=== PATIENT | female | born 1955 | race Caucasian/White ===

== ENCOUNTER 2022-07-29 19:30 | Inpatient (IN) | payer OTHER ==
[~2022-07-29] VITALS: Ht 177.8 cm; Wt 95.2 kg
[2022-07-29 21:18] LABS: BASOPHILS ABSOLUTE AUTO 0.07 K/mm3 (0.00-0.23); BASOPHILS PERCENT AUTO 1 % (0-2); EOSINOPHILS PERCENT AUTO 3 % (0-6); Hematocrit 39.9 % (33.0-51.0); Hemoglobin 13.9 g/dL (11.5-16.0); IMMATURE GRAN ABSOLUTE AUTO 0.05 K/mm3 (0.00-0.10); IMMATURE GRAN PERCENT AUTO 1 % (0-1); LYMPHOCYTES ABSOLUTE AUTO 2.54 K/mm3 (0.84-5.20); LYMPHOCYTES PERCENT AUTO 29 % (21-46); MONOCYTES ABSOLUTE AUTO 0.75 K/mm3 (0.16-1.47); MONOCYTES PERCENT AUTO 9 % (4-13); Mean Corpuscular HGB 30.6 pg (26.0-34.0); Mean Corpuscular HGB Conc 34.8 g/dL (31.5-36.5); Mean Corpuscular Volume 88 fL (80-100); NEUTROPHILS PERCENT AUTO 58 % (41-73); Platelet Count 275 K/mm3 (150-400); RDW Coefficient Variation 12.5 % (11.7-14.2); RDW Standard Deviation 40.2 fL (35.1-46.3); Red Blood Cell Count 4.54 M/mm3 (3.80-5.20); White Blood Cell Count 8.81 K/mm3 (4.00-11.30)
[2022-07-29 21:40] LABS: Source, Urine Clean Catch
[2022-07-29 21:55] LABS: Albumin/Globulin Ratio 0.7 (0.8-1.8); Bilirubin, Total 0.1 mg/dL (0.1-1.0); Bun/Creatinine Ratio 32.7 (12.0-20.0); Creatinine, Blood 0.61 mg/dL (0.40-1.00); Globulin, Blood 4.1 g/dL (2.2-4.0); Potassium, Blood 4.2 mmol/L (3.5-5.5); Total Protein, Blood 7.1 g/dL (6.4-8.2)
[2022-07-29 22:00] LABS: Bilirubin, Urine Neg (Neg); Blood, Urine Neg (Neg); Glucose Qualitative, Urine 4+ (Neg); Ketones, Urine Neg (Neg); Leukocyte Esterase, Urine Neg (Neg); Nitrite, Urine Neg (Neg); Protein, Urine Neg (Neg); Urobilinogen, Urine NORM (Normal)
[2022-07-29 22:04] LABS: Appearance, Urine Clear (Clear); Color, Urine Yellow (P-Yellow)
[2022-07-29] MEDS ORDERED: AMITRIPTYLINE150 M1 PO (22:26)
[2022-07-29] MEDS ORDERED: CYCL10 PO (22:26)
[2022-07-29] MEDS ORDERED: GLIMEPIRIDE2 M2 PO (22:27)
[2022-07-29] MEDS ORDERED: METOPROLOL TART25 MG PO (22:28)
[2022-07-29] MEDS ORDERED: ADMELOG SO100 UNIT/2 SC (22:30)
[2022-07-29] MEDS ORDERED: ASPI81CH PO (22:33)
[2022-07-29] MEDS ORDERED: LANTUS SOL100 UNIT/1 SC (22:33)
[2022-07-29] MEDS ORDERED: THERA-D2000 UNIT PO (22:34)
[2022-07-29] MEDS ORDERED: CRANBERRY CONC1 EAC1 PO (22:35)
[2022-07-29] MEDS ORDERED: ALBU90OI INH (22:36)
--- NOTE | 2022-07-30 05:04 | NUR ---
SHIFT SUMMARY 67 YR F ADMITTED ON 07/29/22 FOR TIA. FULL CODE. PT WAS ADMITTED FROM ED THIS SHIFT. SHE IS A&O X 4 AND IS INDEPENDANT IN THE ROOM. PT STATED SLIGHT LEFT ARM DEFICIT BUT BUT NO OTHER STROKE SX. SHE HAS NO C/O PAIN OR DISCOMFORT. ONCE SHE WAS SETTLED AND ASSESSMENTS DONE SHE WENT TO SLEEP AND SLEPT FOR THE REST OF THE SHIFT.
[2022-07-30 05:15] LABS: CHOL/HDL RATIO 5.5; Cholesterol 204 mg/dL (50-200); HDL Cholesterol 37 mg/dL (>39); LDL/HDL RATIO 3.4; Low Density Lipoprotein Chol 126 mg/dL (0-110); Triglycerides 204 mg/dL (30-160); Very Low Density Lipoprot Chol 40 mg/dL (6-32)
--- NOTE | 2022-07-30 18:28 | NUR ---
PT IS A/OX4, PLEASANT AND COOPERATIVE. THE PT IS UP IND IN HER ROOM. THE PT REPORTS FEELING SOME LEFT ARM WEAKNESS ONLY. PT APPEARS TO BE BREATHING EASILY ON RA. PT WAS MEDICATED FOR BOX WITH TYLENOL X2 TODAY. NO OTHER NEURO CHANGES NOTICED THIS SHIFT. CALL LIGHT IN REACH, WILL CONTINUE TO MONITOR AND ASSESS FOR CHANGES
--- NOTE | 2022-07-31 05:20 | NUR ---
SHIFT SUMMARY; PT WITH NO ACUTE MEDICAL CHANGES THROUGHOUT THE NIGHT. PT EXPRESSED CONCERN ABOUT BLOOD SUGAR LEVELS, STATED SHE DID NOT WANT SHORT ACTING INSULIN. SHE IS WORRIED HER BLOOD SUGAR LEVELS WILL DROP TO QUICKLY AND SHE WILL BECOME HYPOGLYCEMIC. PT WAS GIVEN INSULIN GLARGINE ONLY LAST NIGHT. PT REQUESTED FLEXERIL FOR MUSCLE SPASMS AND TIGHTNESS IN HER LOWER BACK AND THIGHS. PTS REPORTS FLEXERIL WORKED WELL FOR MUSCLE SPASMS. PT INDEPENDENT IN THE ROOM THROUGHOUT THE NIGHT. NICOTINE PATCH WAS REMOVED AT 0300 THIS AM. PT USED CALL LIGHT OLIVIA NATARAJAN THE NIGHT. TELE IN PLACE, PT RAN NSR 70'S. PT CURRENTLY RESTING IN BED WITH THE BED IN THE LOWEST POSITION AND THE CALL LIGHT AT BEDSIDE.
[2022-07-31 08:46] LABS: Albumin, Blood 2.9 g/dL (3.4-5.0); Anion Gap 3 mmol/L (6-16); Blood Urea Nitrogen 18 mg/dL (8-24); Bun/Creatinine Ratio 28.2 (12.0-20.0); CO2, Blood 30 mmol/L (21-32); Chloride, Blood 105 mmol/L (98-108); Creatinine, Blood 0.64 mg/dL (0.40-1.00); Glomerular Filtration Rate 98 (60-); Glucose, Blood 205 mg/dL (70-99); Phosphorus, Blood 2.8 mg/dL (2.5-4.9); Potassium, Blood 3.7 mmol/L (3.5-5.5); Sodium, Blood 138 mmol/L (136-145)
--- NOTE | 2022-07-31 15:19 | NUR ---
PT CAME TO DOOR. FEELS SWEATY, DRIPPING/ CHECK CGB. 66. GAVE APPLE JUICE, YOGURT, SANDWICH. SHE STATES FEELS MUCH BETTER. FEELING NORMAL NOW. ADVISED DR PEREZ. PT STATES NOT EATING MUCH NORMAL.
[2022-07-31] MEDS ORDERED: ATOR80 PO (15:26)
[2022-07-31] MEDS ORDERED: CLOP75 PO (15:26)
[2022-07-31] MEDS ORDERED: LISI20 PO (15:27)
[2022-07-31] MEDS ORDERED: NICODERM CQ1 EA11 TOP (15:27)
--- NOTE | 2022-07-31 16:33 | NUR ---
1600, PT DISCHARGE REVIEWED AND SHE VERBALIZED UNDERSTANDING MARY AND INST. PT PULLED OWN IV (INTACT VISUALIZED). TELE REMVOED. PT WHEELED TO DOOR AT 1610
--- NOTE | 2022-07-31 16:33 | NUR ---
RECHECK OF CBG 131 AFTER FOOD.
== END 2022-07-31 16:34 | disposition home or self-care (01) | DRG 65 ==
LOC: ER 19:30 → MEDS 23:09
PROVIDERS: Internal Medicine; Physician Assistant; ADMIT Internal Medicine
DX: I63.9 Cerebral infarction, unspecified (principal); G81.94 Hemiplegia, unspecified affecting left nondominant side; F17.200 Nicotine dependence, unspecified, uncomplicated; I25.10 Atherosclerotic heart disease of native coronary artery without angina pectoris; E78.5 Hyperlipidemia, unspecified; E11.42 Type 2 diabetes mellitus with diabetic polyneuropathy; I10 Essential (primary) hypertension; E11.65 Type 2 diabetes mellitus with hyperglycemia; Z79.82 Long term (current) use of aspirin; Z95.1 Presence of aortocoronary bypass graft; Z79.899 Other long term (current) drug therapy; Z79.4 Long term (current) use of insulin; Z79.84 Long term (current) use of oral hypoglycemic drugs
CPT/HCPCS: 36415; 70450; 80053; 80061; 80069; 81003; 82947; 83036; 85025; 93005; 93010; 93306; 93880; 97110; 97161; 97165; 97535; A9270; J1650; J1815; J7030; J7120

== ENCOUNTER 2022-08-05 15:57 | Emergency (ER) | payer OTHER ==
[~2022-08-05] VITALS: Ht 175.3 cm; Wt 90.7 kg
[~2022-08-05 15:57] MED LIST: ADMELOG SO100 UNIT/2 SC; ALBU90OI INH; AMITRIPTYLINE150 M1 PO; ASPI81CH PO; ATOR80 PO; CLOP75 PO; CRANBERRY CONC1 EAC1 PO; CYCL10 PO; GLIMEPIRIDE2 M2 PO; LANTUS SOL100 UNIT/1 SC; LISI20 PO; METOPROLOL TART25 MG PO; NICODERM CQ1 EA11 TOP; THERA-D2000 UNIT PO
[2022-08-05 17:43] LABS: BASOPHILS ABSOLUTE AUTO 0.07 K/mm3 (0.00-0.23); BASOPHILS PERCENT AUTO 1 % (0-2); EOSINOPHILS ABSOLUTE AUTO 0.29 K/mm3 (0.00-0.68); EOSINOPHILS PERCENT AUTO 3 % (0-6); Hematocrit 40.5 % (33.0-51.0); Hemoglobin 13.9 g/dL (11.5-16.0); IMMATURE GRAN ABSOLUTE AUTO 0.04 K/mm3 (0.00-0.10); IMMATURE GRAN PERCENT AUTO 0 % (0-1); LYMPHOCYTES ABSOLUTE AUTO 2.73 K/mm3 (0.84-5.20); LYMPHOCYTES PERCENT AUTO 28 % (21-46); MONOCYTES ABSOLUTE AUTO 0.75 K/mm3 (0.16-1.47); MONOCYTES PERCENT AUTO 8 % (4-13); Mean Corpuscular HGB 30.8 pg (26.0-34.0); Mean Corpuscular HGB Conc 34.3 g/dL (31.5-36.5); Mean Corpuscular Volume 90 fL (80-100); NEUTROPHILS ABSOLUTE AUTO 6.06 K/mm3 (1.96-9.15); NEUTROPHILS PERCENT AUTO 61 % (41-73); Platelet Count 289 K/mm3 (150-400); RDW Coefficient Variation 12.5 % (11.7-14.2); RDW Standard Deviation 41.3 fL (35.1-46.3); Red Blood Cell Count 4.52 M/mm3 (3.80-5.20); White Blood Cell Count 9.94 K/mm3 (4.00-11.30)
[2022-08-05 18:04] LABS: Alanine Aminotransfer (ALT/SGP 20 U/L (12-78); Albumin, Blood 3.2 g/dL (3.4-5.0); Albumin/Globulin Ratio 0.8 (0.8-1.8); Alk Phos 122 U/L (50-136); Anion Gap 5 mmol/L (6-16); Aspartate Aminotrans (AST/SGOT 18 U/L (12-37); Bilirubin, Total 0.3 mg/dL (0.1-1.0); Blood Urea Nitrogen 27 mg/dL (8-24); Bun/Creatinine Ratio 30.1 (12.0-20.0); CO2, Blood 27 mmol/L (21-32); Calcium, Blood 9.3 mg/dL (8.5-10.1); Chloride, Blood 105 mmol/L (98-108); Ethanol (Alcohol), Blood, Med <3 mg/dL; Globulin, Blood 4.2 g/dL (2.2-4.0); Glomerular Filtration Rate 71 (60-); Glucose, Blood 291 mg/dL (70-99); Potassium, Blood 4.1 mmol/L (3.5-5.5); Sodium, Blood 137 mmol/L (136-145); Total Protein, Blood 7.4 g/dL (6.4-8.2)
[2022-08-05 18:15] LABS: International Normalized Ratio 1.02; Prothrombin Time Results 10.7 Sec (9.7-11.5)
[2022-08-05 18:54] LABS: Source, Urine Clean Catch
[2022-08-05 19:00] LABS: Appearance, Urine Hazy (Clear); Bilirubin, Urine Neg (Neg); Blood, Urine 1+ (Neg); Color, Urine Yellow (P-Yellow); Glucose Qualitative, Urine 4+ (Neg); Ketones, Urine Neg (Neg); Leukocyte Esterase, Urine 1+ (Neg); Nitrite, Urine Neg (Neg); Protein, Urine Neg (Neg); Urobilinogen, Urine NORM (Normal)
[2022-08-05 19:22] LABS: Bacteria Many /hpf; Hyaline Casts 0-2 /lpf (0-2); Squamous Epithelial Cells Mod /hpf (Few); Yeast/Fungi Urine Rare /hpf
[2022-08-05 19:27] LABS: U Amphetamine Screen Not Detected; U Barbituate Screen Not Detected; U Benzodiazapine Screen Not Detected; U Buprenorphine Screen Not Detected; U Cannabinoids Screen Not Detected; U Cocaine Screen Not Detected; U Methadone Screen Not Detected; U Methamphetamine Screen Not Detected; U Opiates Screen Not Detected; U Oxycodone Screen Not Detected; U Phencyclidine Screen Not Detected; U Propoxyphene Screen Not Detected
== END 2022-08-05 19:45 | disposition home or self-care (01) ==
LOC: ER 15:57
PROVIDERS: Emergency Medicine
DX: I63.9 Cerebral infarction, unspecified (principal); Z79.4 Long term (current) use of insulin; Z79.899 Other long term (current) drug therapy; Z79.82 Long term (current) use of aspirin; I10 Essential (primary) hypertension; I25.10 Atherosclerotic heart disease of native coronary artery without angina pectoris; E11.40 Type 2 diabetes mellitus with diabetic neuropathy, unspecified; F17.210 Nicotine dependence, cigarettes, uncomplicated
CPT/HCPCS: 70450; 80053; 81001; 82947; 84484; 85025; 85610; 87086; 93005; 93010; G0480

== ENCOUNTER → 2023-05-25 | Outpatient (CLI) | payer MEDICARE, OTHER ==
[~2023-05-25] MED LIST changes: +AMOCLA875 PO
[2023-05-25 16:27] LABS: BASOPHILS PERCENT AUTO 1 % (0-2); EOSINOPHILS ABSOLUTE AUTO 0.22 K/mm3 (0.00-0.68); EOSINOPHILS PERCENT AUTO 2 % (0-6); Hematocrit 44.2 % (33.0-51.0); Hemoglobin 15.3 g/dL (11.5-16.0); IMMATURE GRAN ABSOLUTE AUTO 0.05 K/mm3 (0.00-0.10); IMMATURE GRAN PERCENT AUTO 1 % (0-1); LYMPHOCYTES ABSOLUTE AUTO 3.02 K/mm3 (0.84-5.20); LYMPHOCYTES PERCENT AUTO 32 % (21-46); MONOCYTES ABSOLUTE AUTO 0.75 K/mm3 (0.16-1.47); MONOCYTES PERCENT AUTO 8 % (4-13); Mean Corpuscular HGB 30.6 pg (26.0-34.0); Mean Corpuscular HGB Conc 34.6 g/dL (31.5-36.5); Mean Corpuscular Volume 88 fL (80-100); Mean Platelet Volume 11.8 fL (9.1-12.4); NEUTROPHILS ABSOLUTE AUTO 5.37 K/mm3 (1.96-9.15); NEUTROPHILS PERCENT AUTO 56 % (41-73); Platelet Count 260 K/mm3 (150-400); RDW Coefficient Variation 12.4 % (11.7-14.2); RDW Standard Deviation 40.1 fL (35.1-46.3); White Blood Cell Count 9.51 K/mm3 (4.00-11.30)
[2023-05-25 18:25] LABS: Albumin, Blood 3.6 g/dL (3.4-5.0); Albumin/Globulin Ratio 0.9 (0.8-1.8); Bilirubin, Total 0.4 mg/dL (0.1-1.0); Creatinine, Blood 0.56 mg/dL (0.40-1.00); Globulin, Blood 4.1 g/dL (2.2-4.0); Potassium, Blood 3.7 mmol/L (3.5-5.5); Total Protein, Blood 7.7 g/dL (6.4-8.2)
== END ==
LOC: LAB SHORT 14:45 → LAB 14:45
PROVIDERS: Nurse Practitioner Family
DX: I10 Essential (primary) hypertension (principal)
CPT/HCPCS: 80053; 85025

== ENCOUNTER → 2023-06-09 | Outpatient (CLI) | payer MEDICARE, OTHER ==
[2023-06-10 00:08] LABS: Candida species (DNA Probe) Positive (NEGATIVE); G. vaginalis (DNA Probe) Negative (NEGATIVE); T. vaginalis (DNA Probe) Negative (NEGATIVE)
[2023-06-12 01:06] LABS: CHLAMYDIA TRACHOMATIS, NAA Negative (Negative)
== END | disposition home or self-care (01) ==
LOC: LAB 15:30 → LAB SHORT 15:30
PROVIDERS: Nurse Practitioner Family
DX: Z72.51 High risk heterosexual behavior (principal)
CPT/HCPCS: 87480; 87491; 87510; 87591; 87660

== ENCOUNTER → 2023-06-09 | Outpatient (CLI) | payer MEDICARE, OTHER ==
[2023-06-10 08:13] LABS: HIV AB/P24 AG SCREEN Non Reactive (Non Reactive)
[2023-06-12 06:08] LABS: HBSAG SCREEN Negative (Negative); HCV AB Non Reactive (Non Reactive); HEP A AB, IGM Negative (Negative); HEP B CORE AB, IGM Negative (Negative)
== END | disposition home or self-care (01) ==
LOC: LAB SHORT 16:05 → LAB 16:05
PROVIDERS: Nurse Practitioner Family
DX: R10.9 Unspecified abdominal pain (principal); Z72.51 High risk heterosexual behavior
CPT/HCPCS: 80074; 86592; 87389

== ENCOUNTER 2023-06-17 10:30 | Emergency (ER) | payer MEDICARE, OTHER ==
[~2023-06-17] VITALS: Ht 177.8 cm; Wt 90.7 kg
[2023-06-17 11:12] LABS: BASOPHILS PERCENT AUTO 1 % (0-2); EOSINOPHILS ABSOLUTE AUTO 0.06 K/mm3 (0.00-0.68); EOSINOPHILS PERCENT AUTO 1 % (0-6); Hematocrit 41.7 % (33.0-51.0); Hemoglobin 14.5 g/dL (11.5-16.0); IMMATURE GRAN ABSOLUTE AUTO 0.05 K/mm3 (0.00-0.10); IMMATURE GRAN PERCENT AUTO 1 % (0-1); LYMPHOCYTES ABSOLUTE AUTO 1.99 K/mm3 (0.84-5.20); LYMPHOCYTES PERCENT AUTO 23 % (21-46); MONOCYTES ABSOLUTE AUTO 0.87 K/mm3 (0.16-1.47); MONOCYTES PERCENT AUTO 10 % (4-13); Mean Corpuscular HGB 30.3 pg (26.0-34.0); Mean Corpuscular HGB Conc 34.8 g/dL (31.5-36.5); Mean Corpuscular Volume 87 fL (80-100); Mean Platelet Volume 10.5 fL (9.1-12.4); NEUTROPHILS ABSOLUTE AUTO 5.75 K/mm3 (1.96-9.15); NEUTROPHILS PERCENT AUTO 65 % (41-73); Platelet Count 291 K/mm3 (150-400); RDW Standard Deviation 38.6 fL (35.1-46.3); Red Blood Cell Count 4.79 M/mm3 (3.80-5.20); White Blood Cell Count 8.82 K/mm3 (4.00-11.30)
[2023-06-17 11:23] LABS: Bun/Creatinine Ratio 15.6 (12.0-20.0); Calcium, Blood 8.8 mg/dL (8.5-10.1); Creatinine, Blood 0.7 mg/dL (0.40-1.00); Magnesium, Blood 1.6 mg/dL (1.6-2.4); Potassium, Blood 4.2 mmol/L (3.5-5.5)
[2023-06-17 12:06] LABS: Influenza A, PCR NEGATIVE (NEGATIVE); Influenza B, PCR NEGATIVE (NEGATIVE); Resp Syncytial Virus, PCR NEGATIVE (NEGATIVE); SARS-Cov-2 (COVID-19) PCR, MMC NEGATIVE (NEGATIVE)
[2023-06-17 13:41] VITALS: BP 159/95
== END 2023-06-17 13:41 | disposition home or self-care (01) ==
LOC: ER 10:30
PROVIDERS: Student in an Organized Health Care Education/Training Program
DX: E86.0 Dehydration (principal); E87.1 Hypo-osmolality and hyponatremia; B34.9 Viral infection, unspecified; R20.0 Anesthesia of skin; I10 Essential (primary) hypertension; I25.10 Atherosclerotic heart disease of native coronary artery without angina pectoris; E11.40 Type 2 diabetes mellitus with diabetic neuropathy, unspecified; E78.5 Hyperlipidemia, unspecified; F17.210 Nicotine dependence, cigarettes, uncomplicated; Z20.822 Contact with and (suspected) exposure to COVID-19; Z79.82 Long term (current) use of aspirin; Z79.4 Long term (current) use of insulin; Z86.73 Personal history of transient ischemic attack (TIA), and cerebral infarction without residual deficits; Z79.899 Other long term (current) drug therapy
CPT/HCPCS: 0241U; 70450; 80048; 83735; 85025; 93005; 93010; 96374; 99285-25; A9270; J1885

== ENCOUNTER 2023-11-01 14:35 | Emergency (ER) | payer MEDICARE, OTHER ==
[~2023-11-01] VITALS: Ht 180.3 cm; Wt 71.7 kg
[2023-11-01 15:10] VITALS: BP 159/83
[2023-11-01 15:40] LABS: Bicarbonate Venous 22.4 mmol/L (24.0-30.0); PCO2 Venous 43.5 mmHg (38-42); pH Blood Venous 7.34 (7.34-7.37)
[2023-11-01 16:02] LABS: BASOPHILS ABSOLUTE AUTO 0.06 K/mm3 (0.00-0.23); BASOPHILS PERCENT AUTO 1 % (0-2); EOSINOPHILS ABSOLUTE AUTO 0.12 K/mm3 (0.00-0.68); EOSINOPHILS PERCENT AUTO 2 % (0-6); Hematocrit 40.4 % (33.0-51.0); IMMATURE GRAN PERCENT AUTO 1 % (0-1); LYMPHOCYTES ABSOLUTE AUTO 1.95 K/mm3 (0.84-5.20); LYMPHOCYTES PERCENT AUTO 25 % (21-46); MONOCYTES ABSOLUTE AUTO 0.83 K/mm3 (0.16-1.47); MONOCYTES PERCENT AUTO 10 % (4-13); Mean Corpuscular HGB 30.8 pg (26.0-34.0); Mean Corpuscular HGB Conc 34.7 g/dL (31.5-36.5); Mean Corpuscular Volume 89 fL (80-100); Mean Platelet Volume 11.6 fL (9.1-12.4); NEUTROPHILS PERCENT AUTO 62 % (41-73); Platelet Count 247 K/mm3 (150-400); RDW Coefficient Variation 12.4 % (11.7-14.2); RDW Standard Deviation 40.6 fL (35.1-46.3); Red Blood Cell Count 4.54 M/mm3 (3.80-5.20); White Blood Cell Count 7.96 K/mm3 (4.00-11.30)
[2023-11-01 16:05] LABS: Albumin, Blood 3.1 g/dL (3.4-5.0); Albumin/Globulin Ratio 0.8 (0.8-1.8); Beta-hydroxybutyrate 25.2 mg/dL (0.2-2.8); Bilirubin, Total 0.4 mg/dL (0.1-1.0); Bun/Creatinine Ratio 43.1 (12.0-20.0); Calcium, Blood 9.4 mg/dL (8.5-10.1); Creatinine, Blood 0.51 mg/dL (0.40-1.00); Globulin, Blood 4.1 g/dL (2.2-4.0); Potassium, Blood 4.1 mmol/L (3.5-5.5); Total Protein, Blood 7.2 g/dL (6.4-8.2)
[2023-11-01 16:19] LABS: Source, Urine Clean Catch
[2023-11-01 16:32] LABS: Appearance, Urine Clear (Clear); Bilirubin, Urine Neg (Neg); Blood, Urine Neg (Neg); Color, Urine Yellow (P-Yellow); Glucose Qualitative, Urine 4+ (Neg); Ketones, Urine 3+ (Neg); Leukocyte Esterase, Urine Neg (Neg); Nitrite, Urine Neg (Neg); Protein, Urine Neg (Neg); Specific Gravity, Urine 1.015 (1.003-1.022); Urobilinogen, Urine NORM (Normal)
== END 2023-11-01 18:22 | disposition left against medical advice (07) ==
LOC: ER 14:35
PROVIDERS: Emergency Medicine
DX: E11.65 Type 2 diabetes mellitus with hyperglycemia (principal); I10 Essential (primary) hypertension; I25.10 Atherosclerotic heart disease of native coronary artery without angina pectoris; F17.210 Nicotine dependence, cigarettes, uncomplicated; Z79.4 Long term (current) use of insulin; Z79.82 Long term (current) use of aspirin; Z79.899 Other long term (current) drug therapy; Z86.73 Personal history of transient ischemic attack (TIA), and cerebral infarction without residual deficits; Z95.1 Presence of aortocoronary bypass graft; Z95.5 Presence of coronary angioplasty implant and graft; Z53.21 Procedure and treatment not carried out due to patient leaving prior to being seen by health care provider
CPT/HCPCS: 71046; 80053; 81003; 82010; 82803; 85025; 93005; 93010; 94644; 94664; 99285-25; A9270; J1815

== ENCOUNTER → 2024-04-25 | Outpatient (CLI) | payer MEDICARE, OTHER ==
[2024-04-25 14:14] LABS: BASOPHILS ABSOLUTE AUTO 0.09 K/mm3 (0.00-0.23); BASOPHILS PERCENT AUTO 1 % (0-2); EOSINOPHILS ABSOLUTE AUTO 0.17 K/mm3 (0.00-0.68); EOSINOPHILS PERCENT AUTO 2 % (0-6); Hematocrit 45.6 % (33.0-51.0); Hemoglobin 16.1 g/dL (11.5-16.0); IMMATURE GRAN ABSOLUTE AUTO 0.06 K/mm3 (0.00-0.10); IMMATURE GRAN PERCENT AUTO 1 % (0-1); LYMPHOCYTES ABSOLUTE AUTO 2.12 K/mm3 (0.84-5.20); LYMPHOCYTES PERCENT AUTO 22 % (21-46); MONOCYTES ABSOLUTE AUTO 0.63 K/mm3 (0.16-1.47); MONOCYTES PERCENT AUTO 6 % (4-13); Mean Corpuscular HGB 30.8 pg (26.0-34.0); Mean Corpuscular HGB Conc 35.3 g/dL (31.5-36.5); Mean Corpuscular Volume 87 fL (80-100); Mean Platelet Volume 10.8 fL (9.1-12.4); NEUTROPHILS ABSOLUTE AUTO 6.73 K/mm3 (1.96-9.15); NEUTROPHILS PERCENT AUTO 69 % (41-73); Platelet Count 350 K/mm3 (150-400); RDW Standard Deviation 38.7 fL (35.1-46.3); Red Blood Cell Count 5.23 M/mm3 (3.80-5.20)
[2024-04-25 14:27] LABS: Albumin, Blood 3.4 g/dL (3.4-5.0); Albumin/Globulin Ratio 0.8 (0.8-1.8); Bilirubin, Total 0.4 mg/dL (0.1-1.0); Bun/Creatinine Ratio 30.7 (12.0-20.0); Calcium, Blood 8.9 mg/dL (8.5-10.1); Creatinine, Blood 0.59 mg/dL (0.40-1.00); Globulin, Blood 4.5 g/dL (2.2-4.0); Potassium, Blood 3.9 mmol/L (3.5-5.5); Thyroid Stimulating Hormone 1.06 uIU/mL (0.360-4.800); Total Protein, Blood 7.9 g/dL (6.4-8.2)
[2024-04-25 15:07] LABS: Bacterial Vaginosis PCR Negative (NEGATIVE); Candida Group, PCR DETECTED (NOT DETECT); Candida glabrata-krusei, PCR DETECTED (NOT DETECT)
[2024-04-27 07:43] LABS: HIV 1,2 COMBO ANTIGEN/ANTIBODY Negative (Negative)
[2024-04-27 09:51] LABS: HEPATITIS A ANTIBODY, IGM Negative (Negative); HEPATITIS B CORE ANTIBODY, IGM Negative (Negative); HEPATITIS B SURFACE ANTIGEN Negative (Negative); HEPATITIS C AB CIA INTERP Negative (Negative); HEPATITIS C ANTIBODY CIA INDEX 0.05 IV
[2024-04-27 20:45] LABS: APTIMA MEDIA TYPE Urine; C. TRACHOMATIS BY TMA Negative (Negative); N. GONORRHOEAE BY TMA Negative (Negative); SPECIMEN SOURCE Urine; T. VAGINALIS BY TMA Negative (Negative)
== END ==
LOC: LAB 12:20 → LAB SHORT 12:20
PROVIDERS: Nurse Practitioner Family
DX: I10 Essential (primary) hypertension (principal); Z72.51 High risk heterosexual behavior; R53.81 Other malaise
CPT/HCPCS: 80053; 80074; 84443; 85025; 86592; 87086; 87389; 87481; 87491; 87591; 87661; 87801

== ENCOUNTER 2024-10-11 19:11 | Inpatient (IN) | payer MEDICARE, OTHER ==
[~2024-10-11] VITALS: Ht 177.8 cm; Wt 61.4 kg
[2024-10-11 20:35] LABS: CORONAVIRUS COVID-19 AG Negative (NEGATIVE); INFLUENZA A AG Negative (NEGATIVE); INFLUENZA B AG Negative (NEGATIVE)
[2024-10-11] MEDS ORDERED: Acetaminophen 500 MG Tab PO ONE (20:45)
[2024-10-11 21:20] LABS: Albumin, Blood 3.3 g/dL (3.4-5.0); Albumin/Globulin Ratio 0.8 (0.8-1.8); Beta-hydroxybutyrate 0.6 mg/dL (0.2-2.8); Bilirubin, Total 0.2 mg/dL (0.1-1.0); Bun/Creatinine Ratio 35.3 (12.0-20.0); Calcium, Blood 9.9 mg/dL (8.5-10.1); Creatinine, Blood 0.65 mg/dL (0.40-1.00); Globulin, Blood 4.3 g/dL (2.2-4.0); Magnesium, Blood 1.8 mg/dL (1.6-2.4); Phosphorus, Blood 3.3 mg/dL (2.5-4.9); Potassium, Blood 4.2 mmol/L (3.5-5.5); Total Protein, Blood 7.6 g/dL (6.4-8.2)
[2024-10-11 22:31] LABS: Base Excess Venous 0.3 mmol/L; Bicarbonate Venous 23.7 mmol/L (24.0-30.0); PCO2 Venous 45.3 mmHg (38-42); pH Blood Venous 7.36 (7.34-7.37)
[2024-10-11 22:32] LABS: BASOPHILS ABSOLUTE AUTO 0.08 K/mm3 (0.00-0.23); BASOPHILS PERCENT AUTO 1 % (0-2); EOSINOPHILS ABSOLUTE AUTO 0.25 K/mm3 (0.00-0.68); EOSINOPHILS PERCENT AUTO 3 % (0-6); Hematocrit 40.6 % (33.0-51.0); Hemoglobin 14.2 g/dL (11.5-16.0); IMMATURE GRAN ABSOLUTE AUTO 0.02 K/mm3 (0.00-0.10); IMMATURE GRAN PERCENT AUTO 0 % (0-1); LYMPHOCYTES ABSOLUTE AUTO 2.66 K/mm3 (0.84-5.20); LYMPHOCYTES PERCENT AUTO 33 % (21-46); MONOCYTES ABSOLUTE AUTO 0.79 K/mm3 (0.16-1.47); MONOCYTES PERCENT AUTO 10 % (4-13); Mean Corpuscular HGB 30.5 pg (26.0-34.0); Mean Corpuscular Volume 87 fL (80-100); Mean Platelet Volume 10.3 fL (9.1-12.4); NEUTROPHILS ABSOLUTE AUTO 4.17 K/mm3 (1.96-9.15); NEUTROPHILS PERCENT AUTO 52 % (41-73); Platelet Count 240 K/mm3 (150-400); RDW Coefficient Variation 12.3 % (11.7-14.2); RDW Standard Deviation 39.4 fL (35.1-46.3); Red Blood Cell Count 4.66 M/mm3 (3.80-5.20); White Blood Cell Count 7.97 K/mm3 (4.00-11.30)
[2024-10-12] MEDS ORDERED: TRAM50 PO (01:09)
[2024-10-12] MEDS ORDERED: NEURONTIN300 MG PO (01:11)
[2024-10-12] MEDS ORDERED: NS 1,000 ML IV SCH (02:00)
[2024-10-12 02:17] LABS: Source, Urine Clean Catch
[2024-10-12 02:31] LABS: Bilirubin, Urine Neg (Neg); Blood, Urine Neg (Neg); Glucose Qualitative, Urine 4+ (Neg); Ketones, Urine Neg (Neg); Leukocyte Esterase, Urine 2+ (Neg); Nitrite, Urine Neg (Neg); Protein, Urine 2+ (Neg); Specific Gravity, Urine 1.025 (1.003-1.022); Urobilinogen, Urine NORM (Normal)
[2024-10-12 02:32] LABS: Appearance, Urine Hazy (Clear); Color, Urine Yellow (P-Yellow)
[2024-10-12 02:34] LABS: Bacteria Many /hpf; Red Blood Cells, Urine 0-2 /hpf (0-2); Squamous Epithelial Cells Many /hpf (Few)
[2024-10-12] MEDS ORDERED: Cephalexin Monohydrate 500 MG Cap PO ONE (03:50)
[2024-10-12] MEDS ORDERED: Phenazopyridine HCl 100 MG Tab PO ONE (04:05)
[2024-10-12] MEDS ORDERED: Aspirin 325 MG Tab PO ONE (04:05)
[2024-10-12] MEDS ORDERED: Clopidogrel Bisulfate 75 MG Tab PO ONE (04:05)
[2024-10-12] MEDS ORDERED: Ondansetron HCl 2 MG / ML 2ML Vial IV PRN (04:20)
[2024-10-12] MEDS ORDERED: FLU VACC TS2024-25(6MOS UP)/PF 45 MCG/0.5 ML SYRINGE IM ONE (04:25)
[2024-10-12] MEDS ORDERED: Atorvastatin 40 MG Tab PO SCH (05:00)
[2024-10-12 05:54] LABS: BASOPHILS ABSOLUTE AUTO 0.08 K/mm3 (0.00-0.23); BASOPHILS PERCENT AUTO 1 % (0-2); EOSINOPHILS ABSOLUTE AUTO 0.36 K/mm3 (0.00-0.68); EOSINOPHILS PERCENT AUTO 5 % (0-6); Hematocrit 41.5 % (33.0-51.0); Hemoglobin 14.5 g/dL (11.5-16.0); IMMATURE GRAN ABSOLUTE AUTO 0.01 K/mm3 (0.00-0.10); IMMATURE GRAN PERCENT AUTO 0 % (0-1); LYMPHOCYTES ABSOLUTE AUTO 2.51 K/mm3 (0.84-5.20); LYMPHOCYTES PERCENT AUTO 35 % (21-46); MONOCYTES ABSOLUTE AUTO 0.84 K/mm3 (0.16-1.47); MONOCYTES PERCENT AUTO 12 % (4-13); Mean Corpuscular HGB Conc 34.9 g/dL (31.5-36.5); Mean Corpuscular Volume 86 fL (80-100); Mean Platelet Volume 10.3 fL (9.1-12.4); NEUTROPHILS ABSOLUTE AUTO 3.38 K/mm3 (1.96-9.15); NEUTROPHILS PERCENT AUTO 47 % (41-73); Platelet Count 233 K/mm3 (150-400); RDW Coefficient Variation 12.2 % (11.7-14.2); RDW Standard Deviation 38.3 fL (35.1-46.3); Red Blood Cell Count 4.83 M/mm3 (3.80-5.20); White Blood Cell Count 7.18 K/mm3 (4.00-11.30)
[2024-10-12 06:02] LABS: Albumin, Blood 3.1 g/dL (3.4-5.0); Albumin/Globulin Ratio 0.8 (0.8-1.8); Bilirubin, Total 0.3 mg/dL (0.1-1.0); Bun/Creatinine Ratio 32.4 (12.0-20.0); Calcium, Blood 9.1 mg/dL (8.5-10.1); Creatinine, Blood 0.56 mg/dL (0.40-1.00); Globulin, Blood 3.9 g/dL (2.2-4.0)
[2024-10-12] MEDS ORDERED: FentaNYL Citrate 50 MCG/ML 2 ML Injection IV ONE ×2 (06:05→10:00)
[2024-10-12 08:51] LABS: C-REACTIVE PROTEIN, EXT RANGE <0.290 mg/dL (0.000-0.300); CHOL/HDL RATIO 2.9; Cholesterol 120 mg/dL (50-200); HDL Cholesterol 42 mg/dL (>39); LDL/HDL RATIO 1.4; Low Density Lipoprotein Chol 57 mg/dL (0-110); Triglycerides 106 mg/dL (30-160); Very Low Density Lipoprot Chol 21 mg/dL (6-32)
[2024-10-12 08:55] VITALS: BP 168/94
[2024-10-12] MEDS ORDERED: Enoxaparin 40 MG/0.4 ML SYR SC SCH (09:00)
[2024-10-12 09:06] LABS: International Normalized Ratio 1.04; Prothrombin Time Results 11.1 Sec (9.7-11.5)
[2024-10-12] MEDS ORDERED: FentaNYL Citrate 50 MCG/ML 2 ML Injection IV PRN (09:10)
[2024-10-12] MEDS ORDERED: Lisinopril 20 MG Tab PO SCH (09:50)
[2024-10-12] MEDS ORDERED: Nicotine 14 MG PATCH TOP SCH (10:00)
[2024-10-12] MEDS ORDERED: Docusate Sodium/Senna 1 Tab PO SCH (10:00)
[2024-10-12 10:25] LABS: Source, Urine Clean Catch
[2024-10-12 11:09] LABS: Appearance, Urine Clear (Clear); Blood, Urine Neg (Neg); Glucose Qualitative, Urine 2+ (Neg); Ketones, Urine Neg (Neg); Leukocyte Esterase, Urine Neg (Neg); Nitrite, Urine Pos (Neg); Protein, Urine 2+ (Neg); Urobilinogen, Urine 2+ (Normal)
[2024-10-12 11:22] LABS: Bilirubin, Urine 1+ (Neg)
[2024-10-12 11:30] LABS: Color, Urine Yellow (P-Yellow)
[2024-10-12] MEDS ORDERED: Insulin Human Lispro 100 Units/ML 3ML Syringe SC SCH (11:30)
[2024-10-12 11:31] LABS: Bacteria Few /hpf; Red Blood Cells, Urine 0-2 /hpf (0-2); Squamous Epithelial Cells Few /hpf (Few); White Blood Cells, Urine 0-2 /hpf (0-5)
[2024-10-12 11:42] VITALS: BP 168/103
--- NOTE | 2024-10-12 13:37 | NUR ---
ADMIT TO [facility] 05 AT 0850 PATIENT ABLE TO STAND AND TRANSFER WITH ONE PERSON ASSIST. ALERT AND ORIENTED X3. UNABLE TO TELL ME DATE/YEAR. POOR HISTORIAN. STATES SHE IS FEELING FORGETGUL/FOGGY. PATIENT DESCRIBES VISION IMPAIRMENT AT THIS TIME "BLACK SPOTS". PATIENT STATES HER VISION IS BLURRY. PATIENT ABLE TO TELL ME HOW MANY FINGERS I AM HOLDING UP IN ALL CORRIGAN. PUPILS EQUAL AND REACTIVE. UNABLE TO MAKE OUT DETAILS ON FACES AND UNABLE TO SEE UNLESS ITEMS OR FACES ARE UP CLOSE. NO FACIAL DROOP NOTED. ABLE TO FOLLOW ALL FACIAL EXPRESSION COMMANDS. SPEECH CLEAR. HARD OF HEARING. EQUAL STRENGTH. PLAN FOR MRI. BED ALARM IN PLACE. PATIENT HAS BEEN IMPULSIVE TAKING OFF CORDS AND TRYING TO GET UP IND. TELE SHOWING SR/ST WITH HR 90-110'S. DENIES CHEST PAIN/PRESSURE/PALPITATIONS. NO EDEMA NOTED. IV'S SALINE LOCKED. ECHO ORDERS IN PLACE. SCD'S IN PLACE. SBP 160'S. BOWEL TONES PRESENT. DENIES NAUSEA. COMPLAINS OF 9/10 LOWER ABDOMINAL PAIN UPON ADMIT. DESCRIBES IT A ACHE THAT HAS RECENTLY BEEN CONSTANT. SHE STATES SHE INTERMITENTLY IS CONSTIPATED AND HAS NOT HAD A BOWEL MOVEMENT IN 2 DAYS. SHE ALSO REPORTS BRIGHT RED BLOOD WHEN WIPING. SHE ALSO REPORTS URGENCY AND BURNING WITH URINATION. NEW CLEAN CATCH UA SENT. LUNG SOUNDS CLEAR. OCCASIONAL DRY COUGH. SATING ABOVE 95%. CURRENT EVERYDAY SMOKER OF [address] MONTOYA NOTIFIED AND NICOTINE PACTCH TO LEFT DELTOID. DENIES SOB. CIGARETTES AND AVIATION SAFETY TECHNICIAN LOCKED IN MED BOX. SKIN OVERALL C/D/I. DR. MONTOYA TO BEDSIDE UPON ADMIT. THIS RN DISCUSSED HOME MEDS, BLOOD SUGAR CHECKS, ABDOMINAL PAIN AND RECTAL BLEEDING PATIENT REPORTED, URINARY SYMPTOMS, CURRENT BLOOD PRESSURE, AND VISION IMPAIRMENTS.
[2024-10-12] MEDS ORDERED: Gabapentin 300 MG Cap PO SCH (14:00)
--- NOTE | 2024-10-12 14:00 | NUR ---
ECHO COMPLETED. MRI UNABLE TO BE COMPLETED DUE TO PATIENTS CARDIAC STENTS, DR. MONTOYA UPDATED. AFTERNOON VITALS STABLE WITH ELEVATED BLOOD PRESSURE. PATIENT LAYING ON SIDE AT THIS TIME RESTING IN BED. BED ALARM IN PLACE. CALL LIGHT IN REACH.
[2024-10-12] MEDS ORDERED: Nicotine 21 MG PATCH TOP SCH (15:00)
[2024-10-12 15:03] VITALS: BP 167/94
[2024-10-12] MEDS ORDERED: CefTRIAXone Sodium 1,000 MG in NS 100 ML IV SCH (18:00)
--- NOTE | 2024-10-12 18:20 | NUR ---
SHIFT SUMMARY: NO ACUTE CHANGES. PATIENT CONTINUES TO HAVE VISION IMPAIRMENTS. NO NEW NEUROLOGICAL SYMPTOMS. ABLE TO MAKE NEEDS KNOWN. BED ALARM REMAINS IN PLACE. PATIENT FORGETFUL. TELE SHOWING SR/ST WITHHR 90-100'S. ON ROOM AIR. INTERMIT ABDOMINAL PAIN, RELIEVED WITH IV PAIN MEDICATIONS. SBP REMAINS 160'S. DR. MONTOYA UPDATED ON BLOOD PRESSURE, CONTINUED VISION IMPAIRMENTS AND ABDOMINAL PAIN.
[2024-10-12 20:40] VITALS: BP 146/92
[2024-10-12] MEDS ORDERED: Lactobacil 2-S.Thermo-Bifido 1 1 Cap PO SCH (21:00)
[2024-10-13 04:11] VITALS: BP 152/97
--- NOTE | 2024-10-13 05:48 | NUR ---
SHIFT SUMMARY. PT AOX4 BUT FORGETFUL AT TIMES, PLEASANT, COOPERATIVE, ABLE TO MAKE NEEDS KNOWN. PT HAS BEEN ABLE TO REST COMFORTABLY THROUGHOUT MOST OF SHIFT. STEADY SBA TRANSFER TO BATHROOM. PAIN HAS BEEN ADEQUATELY MANAGED VIA EMAR. VITALS HAVE BEEN STABLE. PT HAS HAD FEW SHORT RUNS OF VTACH THROUGHOUT SHIFT, RESIDENT DR. SANCHES MADE AWARE. EKG PERFORMED. ORDERED CMP AND MAG DRAWS THIS MORNING FOR ANALYSIS OF ELECTROLYTES, AWAITING RESULTS. OTHERWISE SHIFT HAS GONE WELL. BED LOCKED IN LOWEST POSITION. CALL LIGHT LEFT WITHIN REACH. CONTINUING TO MONITOR.
[2024-10-13 06:48] LABS: Albumin, Blood 3.1 g/dL (3.4-5.0); Albumin/Globulin Ratio 0.8 (0.8-1.8); Bilirubin, Total 0.4 mg/dL (0.1-1.0); Bun/Creatinine Ratio 20.3 (12.0-20.0); Calcium, Blood 9.4 mg/dL (8.5-10.1); Creatinine, Blood 0.64 mg/dL (0.40-1.00); Globulin, Blood 4.1 g/dL (2.2-4.0); Magnesium, Blood 1.8 mg/dL (1.6-2.4); Potassium, Blood 3.8 mmol/L (3.5-5.5); Total Protein, Blood 7.2 g/dL (6.4-8.2)
[2024-10-13] MEDS ORDERED: FentaNYL Citrate 50 MCG/ML 2 ML Injection IV PRN (07:40)
[2024-10-13] MEDS ORDERED: OxyCODONE HCL 5 MG TAB PO PRN (07:40)
[2024-10-13] MEDS ORDERED: Acetaminophen 325 MG TABLET PO PRN (07:45)
[2024-10-13 08:05] VITALS: BP 122/86
[2024-10-13] MEDS ORDERED: Clopidogrel Bisulfate 75 MG Tab PO SCH (09:00)
[2024-10-13] MEDS ORDERED: Aspirin 81 MG Chew PO SCH (09:00)
[2024-10-13] MEDS ORDERED: Nicotine 21 MG PATCH TOP SCH (09:00)
[2024-10-13] MEDS ORDERED: Spironolactone 12.5 MG TAB PO SCH (09:00)
[2024-10-13] MEDS ORDERED: Empagliflozin 10 MG TAB PO SCH (09:00)
[2024-10-13] MEDS ORDERED: Metoprolol Succinate 25 MG TABCR PO SCH (09:00)
[2024-10-13] MEDS ORDERED: Polyethylene Glycol 3350 17 gm PO SCH (09:00)
[2024-10-13] MEDS ORDERED: Cyclobenzaprine HCl 10 MG Tab PO PRN (09:30)
--- NOTE | 2024-10-13 11:55 | NUR ---
NOTE: PT'S CONFUSION HAS INCREASED THIS SHIFT, DR. MONTOYA NOTIFIED. HE SAID HE WOULD REVIEW HER CHART.
[2024-10-13 16:18] VITALS: BP 147/99
--- NOTE | 2024-10-13 17:20 | NUR ---
SHIFT SUMMARY PT AOX3, UNSURE OF DATE/TIME. SBA TO THE BR. NO BM THIS SHIFT BUT NEW BOWEL CARE MEDICATIONS ADMINISTERED PER THE EMAR. PRUNE JUICE ALSO PROVIDED. INCREASED CONFUSION THIS SHIFT, HEAD CT REPEATED TODAY. RESULTS IN THE CHART. NO NEW ORDERS AT THIS TIME. MEDICATED FOR PAIN PER THE EMAR. PT ANXIOUS AT TIMES BUT COOPERATIVE. REPOSITIONS SELF IN BED, NO EVENTS PER TELE. CALL LIGHT WITHIN REACH, BED LOCKED AND IN THE LOWEST POSITION. WILL REPORT TO ONCOMING NURSE.
--- NOTE | 2024-10-13 18:47 | NUR ---
NOTE: SPOKE WITH DR. MONTOYA ON THE PHONE CONCERNING HEAD CT FROM TODAY, 10/13. PER DR. MONTOYA THE ASPIRIN AND PLAVIX ORDERED PER THE EMAR IS WHAT IS RECOMMENDED. CHARGE NURSE, TEVIN, WAS NOTIFIED.
[2024-10-13 21:02] VITALS: BP 133/79
[2024-10-13 23:18] VITALS: BP 124/69
[2024-10-14 04:19] VITALS: BP 149/92
--- NOTE | 2024-10-14 04:30 | NUR ---
SHIFT SUMMARY. SHIFT HAS BEEN MOSTLY UNREMARKABLE. PT HAS REMAINED AOX2-3 THROUGHOUT SHIFT AND IS OFTEN IMPULSIVE. DESPITE THIS, HAS BEEN VERY PLEASANT, COOPERATIVE, AND REDIRECTABLE. HAS BEEN ABLE TO REST COMFORTABLY THROUGHOUT MOST OF SHIFT. PAIN HAS BEEN ADEQUATELY MANAGED VIA EMAR. VITALS HAVE REMAINED STABLE. NO ACUTE NEURO CHANGES THIS SHIFT. PT CONTINUES TO RUN SINUS ON TELE. BED LOCKED IN LOWEST POSITION. CALL LIGHT LEFT WITHIN REACH. CONTINUING TO MONITOR.
[2024-10-14 07:33] VITALS: BP 115/69
[2024-10-14] MEDS ORDERED: Haloperidol Lactate Inj. 5 MG/ML Injection ONE (09:32)
[2024-10-14] MEDS ORDERED: Haloperidol Lactate Inj. 5 MG/ML Injection IV ONE (10:00)
--- NOTE | 2024-10-14 12:30 | NUR ---
MORNING EVENT THE PT WAS VERY ANXIOUS THIS MORNING AND WAS TRYING TO LEAVE AMA. DR. LEMONS WAS AT BEDSIDE AND ORDERED 2.5MG HALDOL IV. THE MEDICATION HAD NO EFFECT ON THE PT, BUT SHE WAS AGGREEABLE TO HANG OUT IN THE ROOM UNTIL HER BESTFREIND LORE ARRIVED WITH HER DOG STAS. WHILE LORE WAS IN THE ROOM THIS RN DISCUSSED THE SEVERITY OF THE PT'S MENTATION AND VISUAL DEFICITS W/ LORE AND THE PT. THE PT WAS AGREEABLE TO STAY ANOTHER DAY OR TWO LONG HER DOG CAN KEEP VISITING. LORE UNDERSTOOD THE STATE OF THE PT AND WAS REASSURING THAT IT IS OKAY TO STAY AND THAT HER DOG WAS WELL CARED FOR. THE PT BELIEVES THAT FORMER PRESIDENT SHERI IS IN OFFICE, STATED THAT IT WAS OCT. AND THE YEAR WAS NOV, SHE KNOWS SHE HAS A CVA, BUT DOES NOT UNDERSTAND THE DEFICITS SHE HAS. THE PT CONTINUES TO HAVE BILATERAL VISUAL DEFICITS AND STILL NEEDS ASSISTANCE WALKED BECAUSE SHE WALKS INTO TABLES OR DOORS. HER BED ALARM REMAINS ON. VS STABLE, AND RA W/ SP02 >93%. SHE IS MEDICAL STATUS WITH TELE. SEE NOTES FOR UPDATES.
[2024-10-14] MEDS ORDERED: Haloperidol Lactate Inj. 5 MG/ML Injection IV PRN (16:00)
[2024-10-14 16:47] VITALS: BP 108/69
--- NOTE | 2024-10-14 17:23 | NUR ---
END OF SHIFT SUMMARY THE PT REMAINS ALERT BUT ORIENTED TO HERSELF. A 1:1 SITTER WAS OBTAINED AFTER HER MORNING EVENT. SEE PREVIOUS NOTE. SHE IS STILL HAVING VISUAL DEFICITS AND NEEDING ASSISTANCE WHEN WALKING. SHE IS A 1P SBA, BUT HAS GOTTEN SLIGHTLY WOBBLY ON HER FEET, BUT IS ABLE TO RECOVER AND WALK STEADY. SHE REMAINS ON RA W/ SP02 >93%; SHE DENIES SOB. HER TELE WAS D/C'D THIS MORNING AND SHE IS MEDICAL STATUS. SHE HAS COMPLAINED OF LOW BACK PAIN AND TYLENOL WAS MORE EFFECTIVE THEN FENTANYL. MEDS GIVEN PER EMAR. SEE NOTES FOR UDPATES.
[2024-10-14 21:21] VITALS: BP 122/77
[2024-10-15] VITALS (11 sets, daily range): BP systolic 90–149; BP diastolic 61–80
[2024-10-15 06:17] LABS: BASOPHILS ABSOLUTE AUTO 0.08 K/mm3 (0.00-0.23); BASOPHILS PERCENT AUTO 1 % (0-2); EOSINOPHILS ABSOLUTE AUTO 0.25 K/mm3 (0.00-0.68); EOSINOPHILS PERCENT AUTO 3 % (0-6); Hematocrit 41.4 % (33.0-51.0); Hemoglobin 14.4 g/dL (11.5-16.0); IMMATURE GRAN ABSOLUTE AUTO 0.02 K/mm3 (0.00-0.10); IMMATURE GRAN PERCENT AUTO 0 % (0-1); LYMPHOCYTES ABSOLUTE AUTO 3.25 K/mm3 (0.84-5.20); LYMPHOCYTES PERCENT AUTO 41 % (21-46); MONOCYTES ABSOLUTE AUTO 0.97 K/mm3 (0.16-1.47); MONOCYTES PERCENT AUTO 12 % (4-13); Mean Corpuscular HGB 30.3 pg (26.0-34.0); Mean Corpuscular HGB Conc 34.8 g/dL (31.5-36.5); Mean Corpuscular Volume 87 fL (80-100); NEUTROPHILS ABSOLUTE AUTO 3.29 K/mm3 (1.96-9.15); NEUTROPHILS PERCENT AUTO 42 % (41-73); Platelet Count 255 K/mm3 (150-400); RDW Coefficient Variation 12.2 % (11.7-14.2); RDW Standard Deviation 39.1 fL (35.1-46.3); Red Blood Cell Count 4.76 M/mm3 (3.80-5.20); White Blood Cell Count 7.86 K/mm3 (4.00-11.30)
[2024-10-15] MEDS ORDERED: HYDROmorphone HCl/Pf 1MG SYR IV ONE (06:40)
[2024-10-15 06:44] LABS: Albumin/Globulin Ratio 0.7 (0.8-1.8); Bilirubin, Total 0.4 mg/dL (0.1-1.0); Bun/Creatinine Ratio 29.2 (12.0-20.0); Calcium, Blood 9.4 mg/dL (8.5-10.1); Creatinine, Blood 0.75 mg/dL (0.40-1.00); Globulin, Blood 4.2 g/dL (2.2-4.0); Potassium, Blood 4.2 mmol/L (3.5-5.5); Total Protein, Blood 7.2 g/dL (6.4-8.2)
--- NOTE | 2024-10-15 07:25 | NUR ---
NOC SHIFT SUMMARY PT WAS ORIENTED X4 OVERNIGHT, IMPULSIVE AND FORGETFUL. LIMITED PERIHPHERAL VISUAL FIELD AND SPOTTY VISION LIMITING MOBILITY. OVERESTIMATES LIMITS AND ABILITIES WITH UNSTEADY GAIT AND VISION. VSS, HOWEVER MILDLY LOWER BP THIS AM. INCREASED ABD PAIN THIS AM UNRELIEVED BY PRNS AND BOWEL REGIMEN. REPORTS NO BM X 1 WEEK, ABD SOFT, LLQ PAIN AND GUARDING. ATTEMPTING AMBULATION AND PRUNE JUICE. NOTIFIED DR. COYNE AND KUB AND IV DILAUDID X1 ORDERED. GAVE REPORT TO TRACY Augustine RN THIS AM.
[2024-10-15] MEDS ORDERED: Nicotine 21 MG PATCH TOP SCH (09:00)
[2024-10-15] MEDS ORDERED: Aspirin 81 MG Chew PO SCH (09:40)
[2024-10-15] MEDS ORDERED: HYDROcodone 5-APAP 325 TAB PO PRN (16:00)
--- NOTE | 2024-10-15 18:07 | NUR ---
SHIFT SUMMARY PT ALERT, ORIENTED X3, ANXIOUS AND CAN BE FORGETFUL. CONTINUES TO HAVE VISION DEFICIT, PERIPHRIAL, WELL SPOTS OFTEN. DIFFICULTY WITH DEPTH PERCEPTION. SP02>90% ON RA. PT MEDICAL NO TELEMETRY. C/O OF ABD PAIN. MEDICATED W/ FENTANYL AND TYLENOL. CALL PLACED TO MD LEMONS. MD LEMONS W/ ORDERS FOR NORCO. PT STATES NORCO RELIEVED PAIN TOTALLY. PT AMBULATED SBA FWW TO BATHROOM MULTIPLE TIMES TO VOID AND HAVE 3 LARGE BM. PT EVALUATED BY PT AND OT, WALKED HALLWAY THIS SHIFT. PT CURRENTLY RESTING IN ROOM EATING DINNER. CALL LIGHT IN REACH. BED ALARM ON.
[2024-10-16 04:22] VITALS: BP 141/80
[2024-10-16 07:52] VITALS: BP 131/69
[2024-10-16] MEDS ORDERED: HYDROcodone 10-APAP 325 TAB PO PRN (13:10)
[2024-10-16 15:29] VITALS: BP 132/85
--- NOTE | 2024-10-16 18:19 | NUR ---
SHIFT SUMMARY PT ALERT, ORIENTED TO NAME/, UNABLE TO STATE WHERE SHE IS OR WHY SHE IS HERE. SHE IS ANXIOUS AT TIMES. PT NOT ON TELE, SBP STABLE, DENIES CP/PRESSURE, NUMB/TINGLING. O2 >92% ON RA, DENIES SOB. PT WITH RIGHTSIDED DEFICITS AND VISIUAL CHANGES. SHE IS UNABLE TO SEE OUT OF HER RIGHT EYE. SHE HAS GENRALIZED WEAKNESS AND IS FORGETFUL. BED ALARM ON. SHE HAS BACK/NECK/HIP/ABD PAIN RATING IT AN 8/10, MEDICATING PER EMAR. PT DENIES ANY QUESTIONS AT THIS TIME. WILL MONITOR AND REPORT TO LEAD SYSTEMS ANALYST RN.
[2024-10-16 20:23] VITALS: BP 117/76
--- NOTE | 2024-10-17 01:48 | NUR ---
TRANSFER PT A&O TO SELF AND PERSON. NEEDS FREQUENT REMINDERS OF HER ORIENTATION. PLEASANT AND COOPERATIVE WITH CARE. VSS ON RA. VISUAL FIELD LOSS. PT STATES SHE SEES BLACK SPOTS. C/O PAIN 7/10 IN HER BACK, MEDICATED PER EMAR. X1 ASSIST TO BR. VOIDING IN TOILET. NO BM THIS SHIFT, PULL-UP IN PLACE, PT HAS BEEN CONTINENT. TOLERATING A CONS CARB DIET. BED IN LOWEST POSITION, CALL LIGHT WITHIN REACH. BED ALARM SET FOR PT'S SAFETY. PT TRANSFERING TO ROOM 355. CALLED RICHARD AT 0145 AND GAVE HER REPORT. JAMEEL MAGANA, TRANSFERED PT IN A WHEELCHAIR WITH BELONGINGS IN HER POSSESSION.
[2024-10-17 02:10] VITALS: BP 95/70
--- NOTE | 2024-10-17 02:24 | NUR ---
Patient arrived from [facility] via W/C and placed in room 355. Patient is "befuddled" about the change of rooms. Patient is oriented to self. She does know she has a friend Tremayne. His phone number is on the board. Patient states she has "fuzzy spots" in her right sided vision. She said her left eye vision is good. She has equal cafe team member and her legs are stong. No facial droop. Pt was oriented to her room and call light. She has cigarettes and a project buyer locked up in her med drawer. Bed alarm is on. Will monitor.
--- NOTE | 2024-10-17 06:16 | NUR ---
Rn shift summary: Patient is alert, calm and kcooperative. Pt remains confused. She has rested on and off this shift since transfer. Bed alarm is on. She has not tried to get out of bed. Pt was given a snack about 0300. She did well feeding herself once pudding cup and spoon in her hand. Call light remains in lap. Will cont to monitor.
[2024-10-17 07:41] VITALS: BP 116/76
[2024-10-17 15:39] VITALS: BP 125/89
--- NOTE | 2024-10-17 18:26 | NUR ---
SHIFT SUMMARY PT AOX3 DURING THE DAY, MORE CONFUSED AT NIGHT. MORE IMPULSIVE AT NIGHT, CA OR BA IN PLACE. MEDICATED FOR PAIN PER THE EMAR. AT TIMES CALLS AND MAKES HER NEEDS KNOWN, 1 ASSIST WITH THE FWW TO THE BR. REPOSITIONS SELF IN BED. NO ACUTE CHANGES. PT DOES GET INCREASINGLY PARANOID AT NIGHT. CALLING HER FRIEND, LORE, HELPS. CALL LIGHT WITHIN REACH, BED LOCKED AND IN THE LOWEST POSITION. WILL REPORT TO ONCOMING NURSE.
[2024-10-17 19:25] VITALS: BP 140/75
--- NOTE | 2024-10-17 22:13 | NUR ---
ONE TIME T-ORDER RECEIVED FROM THE ON-CALL HOSPITALIST CHARI: TRAZADONE 25MG PO NOW. ENTERED TO CM Sistemi, SEE EMAR. NO ADDITIONAL NEW ORDERS AT THIS TIME.
[2024-10-17] MEDS ORDERED: TraZODone HCl 50 MG Tab PO ONE (22:15)
--- NOTE | 2024-10-18 03:00 | NUR ---
SHIFT SUMMARY PT IS A/O X2, RESTLESS @HS AND DURING NIGHT HRS. PRN HALDOL NOT EFFECTIVE AT HS. PT REFUSED SCHEDULED BOWEL MEDICATIONS. FREQUENTLY ASSISTED TO THE RESTROOM, 1-PERSON ASSIST WITH FWW. MULTIPLE ATTEMPTS TO GET OUT OF BED W/O ASSISTANCE. PT IS UNSTEADY, WEAK LE'S. BED ALARM ALARMING OFTEN PT UNABLE TO USE THE CALL LIGHT. PT REQUESTED TO SIT ON THE RECLINER (CHAIR ALARM ON), AND SOON AFTER ATTEMPTING TO TRANSFER ON HER OWN BACK TO BED. ONE TIME ORDER OF TRAZADONE 25MG PO RECEIVED FROM THE ON-CALL HOSPITALIST, ADMINISTERED ORDERED. PT C/O LE BILATERAL PAIN AND BACK PAIN. PRN PO NORCO ADMINISTERED DURING NIGHT HRS. HS B. NO ACUTE EVENTS/DISTRESS DURING THIS SHIFT. BED AT THE LOWEST POSITION, CALL LIGHT W/I REACH. BED ALARM FOR SAFETY.
[2024-10-18 05:12] VITALS: BP 115/78
[2024-10-18] MEDS ORDERED: OLANZapine 10 MG Vial IM PRN (05:55)
[2024-10-18] MEDS ORDERED: QUEtiapine Fumarate 25 MG Tab PO PRN (05:55)
[2024-10-18 07:14] VITALS: BP 109/76
--- NOTE | 2024-10-18 15:00 | NUR ---
SHIFT SUMMARY AND PATIENT PATIENT VERY WEAK AND LETHARGIC THROUGHOUT SHIFT. FAMILY IN AND OUT. FAMILY TEARFUL ABOUT PATIENT'S CHOICE TO BE ON HOSPICE AND WISHING SHE WOULD NOT GIVE UP. PATIENT ABLE TO ANSWER SIMPLE QUESTIONS AT START OF SHIFT. REQUESTING PAIN MEDS X 2. ROUNDING ON PATIENT AT 1445, FOUND PAITENT NOT BREATHING. CPAP ON. NO PULSE. PALLIATIVE CARE, PASTORAL CARE, CHARGE NURSE AND DR. PEREZ NOTIFIED OF PATIENT . FAMILY ARRIVED TO SEE PATIENT AND WAS NOT AWARE THAT PATIENT HAD . FRAME FIXER INFORMED THEM THAT SHE HAD PASSED.
[2024-10-18 16:20] VITALS: BP 102/64
--- NOTE | 2024-10-18 18:30 | NUR ---
SHIFT SUMMARY PATIENT ALERT AND INTERACTIVE. PATIENT VERY FORGETFUL AND ASKING QUESTIONS OVER AND OVER. PATIENT ABLE TO AMBULATE WITH WALKER AND STAND BY ASSIST. PATIENT CONTINUES TO HAVE ISSUES WITH VISUAL FIELD. PATIENT MEDICATED REGULARLY FOR CHRONIC BACK PAIN. MORNING DOSE OF SEROQUEL GIVEN FOR AGITATION WITH GOOD RESULTS.
[2024-10-18] MEDS ORDERED: QUEtiapine Fumarate 50 MG TAB PO SCH (21:00)
--- NOTE | 2024-10-19 03:10 | NUR ---
SHIFT SUMMARY PT IS A/O X2, CONFUSED, AGITATED @HS. UNABLE TO REORIENT THE PT. PT C/O 07/12 CHRONIC BACKPAIN, MEDICATED PER EMAR WITH GOOD RESULTS. FEW ATTEMPTS TO AMBULATE INDEPENDENTLY - BED ALARM FOR SAFETY. 1-PERSON ASSIST WITH FWW TO THE RESTROOM. PT HAS UNSTEADY GAIT AND VISION DEFICITS "BLACK SPOTS" PER PT REPORT. HS B. NO ACUTE EVENTS DURING THIS SHIFT. BED AT THE LOWEST POSITION, CALL LIGHT W/I REACH. PT IS ABLE TO MAKE HER NEEDS KNOWN.
[2024-10-19 04:18] VITALS: BP 114/82
[2024-10-19 08:11] VITALS: BP 113/67
[2024-10-19 15:06] VITALS: BP 99/64
--- NOTE | 2024-10-19 17:21 | NUR ---
SHIFT SUMMARY PATIENT ALERT AND INTERACTIVE BUT CONFUSED AND FORGETFUL. PATIENT UP TO BR WITH WALKER AND STAND BY ASSIST. PATIENT NEEDIING CUING BECAUSE OF VISUAL FIELD DEFICITS. PATIENT MEDICATED FOR CHRONIC PAIN PER MAR AND MEDICATED FOR AGITATION AND IRRITABILITY NEEDED. PATIENT VERBALIZES DESIRE TO SMOKE BUT KNOWS SHE CAN'T SMOKE IN THE HOSPITAL. CONTINUE TO WAIT FOR PLACEMENT. CASE MANAGEMENT WORKING ON DISCHARGE PLAN.
[2024-10-19 19:14] VITALS: BP 77/50
[2024-10-19 20:10] VITALS: BP 90/62
[2024-10-20 03:39] VITALS: BP 96/61
--- NOTE | 2024-10-20 04:02 | NUR ---
SHIFT SUMMARY PT ALERT ORIENTED TO SELF WITH CONFUSION AND FORGETFUL. REQUIRES 1 PERSON SBA TO AMBULATE TO THE BATHROOM. SHE HAS BED ALARM ON. SHE HAS VISUAL FIELD DEFECITS R/T LT OCCIPITAL STROKE. NO C/O PAIN THIS SHIFT. SHES BEEN SLEEPING MOST OF THE SHIFT. SHE TOOK HER PO SEROQUEL AT BEDTIME AND THIS HELPED WITH HER EPISODES OF ANXIETY AND AGITATION. SHE HAS ASKED SEVERAL TIMES TO GO OUT AND SMOKE AND SHES REMINDED THAT SHES AT THE HOSPITAL. SHES WORKING WITH CASE MANAGEMENT AND THERE WORKING ON PLACEMENT. RESTING IN BED AT THIS TIME WITH CALL LIGHT IN REACH
[2024-10-20 07:23] VITALS: BP 110/65
[2024-10-20 15:15] VITALS: BP 105/65
--- NOTE | 2024-10-20 19:10 | NUR ---
PT ALERT TO SELF AND BELIVES IS IN [facility] TODAY. KNOWS YR, AND REMEMBERED MONTH ONCE TOLD. DID STATE NO BM FEW DAYS. GAVE AM BOWEL MEDS. HAVING MULTIPLE STOOLS SOFT. ALMOST DIARRHEA. AMBULATES SBA TO BATHROOM. FWW. STATES GARCIA BLANK VISION ON MIDLINE TO RT. VS SOFT BUT STABLE. NO FURTHER CONCERNS NOTED. BED INL OW POSITION, CALL LITE IN REACH, BED ALARM ON FOR SAFETY
[2024-10-20 19:32] VITALS: BP 117/76
--- NOTE | 2024-10-20 20:50 | NUR ---
PT REFUSED TO TAKE ANY OF HER PO NIGHT MEDS AND REFUSED TO HAVE BLOOD SUGAR TAKEN
--- NOTE | 2024-10-20 20:51 | NUR ---
PT IS VERY IRATE STATING THAT SHES MAD ABOUT HER MEDS AND THAT WERE HOLDING HER HOSTAGE AND THAT SHE WONT TAKE ANY MEDS OR HAVE BLOOD SUGAR TAKEN SHE STATED THAT SHE WANTS 911 CALLED
--- NOTE | 2024-10-20 21:02 | NUR ---
PT YELLING AND SCREAMING OUT AT STAFF WHILE BEING COMBATIVE AND TRYING TO STRIKE OUT AT STAFF STATING THAT SHE WANTS TO CALL 911. KEEPS ATTEMPTING TO BE UNSAFE TRYING TO GET UP OUT OF BED AND SHES UNSAFE TO AMBULATE BY HERSELF R/T OCCIPITAL STROKE I TRIED SEVERAL TIMES TO REDIRECT HER WITHOUT ANY SUCCESS.
--- NOTE | 2024-10-21 04:30 | NUR ---
SHIFT SUMMARY PT ALERT ORIENTED TO SELF ONLY SHES CONFUSED ABOUT WHERE SHES AT AND WHAT MONTH IT IS SHE HAS BEEN IRATE ANXIOUS AND IRRITABLE ALL SHIFT AND AT ONE TIME YELLING OUT AND SCREAMING AT THE STAFF. SHE KEPT STATING THAT SHE WANTED THE PHONE TO CALL THE POLICE SHE KEPT ATTEMPTING TO GET UP OUT OF BED BY HERSELF EVEN AFTER WE EXPLAINED TO HER THAT SHE WAS UNSAFE R/T HER STROKE. AT FIRST SHE WAS REFUSING ANY MEDS VS OR HER FS TO BE DONE. I GAVE HER A IM ZYPREXA WHICH SEEMED TO HELP HER FOR A LITTLE WHILE I WAS FINALLY ABLE TO GET HER TO TAKE HER PO MEDS. WE BROUGHT A SITTER IN TO SIT WITH HER DUE TO HER SAFETY AND SAFETY OF OTHER STAFF. SHE C/O BACK PAIN MEDICATED WITH NORCO WITH GOOD RELIEF. NO LOOSE STOOLS THIS SHIFT SHE AMBULATES WITH 1 PERSON SBA TO THE BATHROOM. FS WAS 239 THIS SHIFT. SHES UNABLE TO SEE ANYTHING ON HER RT SIDE R/T THE OCCIPITAL STROKE. AT THIS TIMES SHES SLEEPING WITH HER CALL LIGHT IN REACH
[2024-10-21 04:52] VITALS: BP 130/76
[2024-10-21 07:40] VITALS: BP 113/63
[2024-10-21] MEDS ORDERED: Polyethylene Glycol 3350 17 gm PO PRN (11:55)
[2024-10-21] MEDS ORDERED: Docusate Sodium/Senna 1 Tab PO PRN (11:55)
[2024-10-21 17:30] VITALS: BP 110/71
--- NOTE | 2024-10-21 18:11 | NUR ---
PT PLEASANT CONFUSED TODAY. ALERT TO SELF AND SITUATION. HAS BEEN UP MANY TIMES SETTING ALARMS OFF. REDIRECTABLE T/O DAY. VISION CONTINUES TO BE BLANK ON MIDLINE TO RT SIDE. SEROQUEL TO KEEP MORE CALM. PAIN MANAGED WITH AVAILABLE MEDICATIONS. NO NEW CONCERNS NOTED. BED INLOW POSITION, CALL LITE IN REACH, BED ALARM ON FOR SAFETY
[2024-10-21 19:22] VITALS: BP 78/51
[2024-10-21 22:31] VITALS: BP 116/70
[2024-10-22 04:35] VITALS: BP 100/75; BP 111/65
--- NOTE | 2024-10-22 04:54 | NUR ---
SHIFT SUMMARY PT ALERT ORIENTED TO SELF ONLY SHES CONFUSED ABOUT WHERE SHES AT AND WHY SHES HERE. NO BEHAVIORS THIS SHIFT. SHE WILL TRY TO GET OUT OF BED BY HERSELF SO BED ALARM IS ON AT ALL TIMES. AMBULATES WITH 1 PERSON SBA TO BATHROOM. C/O BACK PAIN MEDICATED WITH NORCO WITH GOOD PAIN RELIEF. NO LOOSE STOOLS THIS SHIFT. SHES AWAITING PLACEMENT. FS DONE AC AND HS WAS 229 LAST NIGHT. CONTINUES ON SEROQUEL FOR HER BEHAVIORS. REMAINS WITH A VISUAL DEFECIT R/T LT OCCIPITAL STROKE. SHES RESTING IN BED AT THIS TIME WITH BED ALARM ON.
[2024-10-22 07:14] VITALS: BP 71/48
[2024-10-22 07:17] VITALS: BP 82/59
[2024-10-22 09:26] VITALS: BP 108/68
[2024-10-22 15:29] LABS: BASOPHILS ABSOLUTE AUTO 0.07 K/mm3 (0.00-0.23); BASOPHILS PERCENT AUTO 1 % (0-2); EOSINOPHILS ABSOLUTE AUTO 0.31 K/mm3 (0.00-0.68); EOSINOPHILS PERCENT AUTO 4 % (0-6); Hematocrit 40.9 % (33.0-51.0); Hemoglobin 13.8 g/dL (11.5-16.0); IMMATURE GRAN ABSOLUTE AUTO 0.03 K/mm3 (0.00-0.10); IMMATURE GRAN PERCENT AUTO 0 % (0-1); LYMPHOCYTES ABSOLUTE AUTO 2.58 K/mm3 (0.84-5.20); LYMPHOCYTES PERCENT AUTO 29 % (21-46); MONOCYTES ABSOLUTE AUTO 0.82 K/mm3 (0.16-1.47); MONOCYTES PERCENT AUTO 9 % (4-13); Mean Corpuscular HGB 29.6 pg (26.0-34.0); Mean Corpuscular HGB Conc 33.7 g/dL (31.5-36.5); Mean Corpuscular Volume 88 fL (80-100); Mean Platelet Volume 10.2 fL (9.1-12.4); NEUTROPHILS ABSOLUTE AUTO 5.03 K/mm3 (1.96-9.15); NEUTROPHILS PERCENT AUTO 57 % (41-73); Platelet Count 318 K/mm3 (150-400); RDW Coefficient Variation 12.2 % (11.7-14.2); RDW Standard Deviation 39.6 fL (35.1-46.3); Red Blood Cell Count 4.66 M/mm3 (3.80-5.20); White Blood Cell Count 8.84 K/mm3 (4.00-11.30)
[2024-10-22 15:32] VITALS: BP 82/56
[2024-10-22 15:47] VITALS: BP 90/62
[2024-10-22 15:57] LABS: Albumin, Blood 3.4 g/dL (3.4-5.0); Albumin/Globulin Ratio 0.8 (0.8-1.8); Bilirubin, Total 0.4 mg/dL (0.1-1.0); Bun/Creatinine Ratio 40.8 (12.0-20.0); Calcium, Blood 9.9 mg/dL (8.5-10.1); Creatinine, Blood 0.83 mg/dL (0.40-1.00); Globulin, Blood 4.5 g/dL (2.2-4.0); Potassium, Blood 5.2 mmol/L (3.5-5.5); Total Protein, Blood 7.9 g/dL (6.4-8.2)
--- NOTE | 2024-10-22 16:45 | NUR ---
DISCHARGE SUMMARY PATIENT UP AND DOWN THROUGHTOUT SHIFT WITH BED ALARM AND CHAIR ALARM ON. MEDICATED FOR PAIN AND ANXIETY PER EMAR. SHE CONTINUES TO ASK ABOUT WHERE SHE IS GOING AND ABOUT GETTING A CIGARETTE. PHONE CALL TO [facility], UNABLE TO REACH PERSON FOR REPORT X2 AT 1550.
--- NOTE | 2024-10-22 18:16 | NUR ---
PHONE REPORT TO CHUCKY CUEVAS AT [facility]
== END 2024-10-22 16:16 | DRG 65 ==
LOC: ER 19:11 → ERHOLD 19:12 → PCU 19:12 → ERHOLD 19:12 → PCU 10-12 08:41 → MEDS 10-13 16:19 → PCU 10-17 01:45 → MEDS 10-17 01:58
PROVIDERS: Emergency Medicine; Family Medicine; Student in an Organized Health Care Education/Training Program; ADMIT Internal Medicine
DX: I63.431 Cerebral infarction due to embolism of right posterior cerebral artery (principal); G93.40 Encephalopathy, unspecified; I50.22 Chronic systolic (congestive) heart failure; N39.0 Urinary tract infection, site not specified; E11.65 Type 2 diabetes mellitus with hyperglycemia; E78.5 Hyperlipidemia, unspecified; I25.10 Atherosclerotic heart disease of native coronary artery without angina pectoris; E11.40 Type 2 diabetes mellitus with diabetic neuropathy, unspecified; F17.210 Nicotine dependence, cigarettes, uncomplicated; I11.0 Hypertensive heart disease with heart failure; E86.0 Dehydration; H54.61 Unqualified visual loss, right eye, normal vision left eye; I65.22 Occlusion and stenosis of left carotid artery; F03.90 Unspecified dementia, unspecified severity, without behavioral disturbance, psychotic disturbance, mood disturbance, and anxiety; K59.00 Constipation, unspecified; Z86.73 Personal history of transient ischemic attack (TIA), and cerebral infarction without residual deficits; Z98.61 Coronary angioplasty status; Z79.891 Long term (current) use of opiate analgesic; Z79.4 Long term (current) use of insulin; Z79.82 Long term (current) use of aspirin; Z79.811 Long term (current) use of aromatase inhibitors; Z79.51 Long term (current) use of inhaled steroids; Z79.899 Other long term (current) drug therapy; Z95.1 Presence of aortocoronary bypass graft; Z28.21 Immunization not carried out because of patient refusal
CPT/HCPCS: 36415; 70450; 70496; 70498; 74018; 80053; 80061; 81001; 82010; 82803; 82947; 83735; 84100; 85025; 85610; 85651; 85730; 86140; 87086; 87428-QW; 93005; 93010; 93306; 96361; 96365; 96374; 96375; 96376; 97110; 97112; 97116; 97129; 97130; 97162; 97165; 97535; 99285; A9270; G0378; J0696; J1171; J1630; J2405; J3010; J7030; Q9967

== ENCOUNTER → 2025-07-29 | Outpatient (CLI) | payer MEDICARE, OTHER ==
[~2025-07-29] MED LIST changes: +MIRALAX17 GM PO; +NEURONTIN300 MG PO; +TRAM50 PO
[2025-07-30 12:53] LABS: Source, Urine Clean Catch
[2025-07-30 13:28] LABS: Bilirubin, Urine Neg (Neg); Color, Urine Yellow (P-Yellow); Glucose Qualitative, Urine 4+ (Neg); Ketones, Urine Neg (Neg); Leukocyte Esterase, Urine 3+ (Neg); Protein, Urine 3+ (Neg); Specific Gravity, Urine 1.010 (1.003-1.022); Urobilinogen, Urine NORM (Normal)
[2025-07-30 14:22] LABS: White Blood Cells, Urine TNTC /hpf (0-5)
[2025-07-30 14:23] LABS: Yeast/Fungi Urine Few /hpf
== END ==
LOC: LAB SHORT 10:25 → LAB 10:25
PROVIDERS: Nurse Practitioner Family
DX: N39.0 Urinary tract infection, site not specified (principal)
CPT/HCPCS: 81001; 87077; 87086; 87186